=== PATIENT | male | born 1965 | race Caucasian/White ===

== ENCOUNTER 2019-09-11 19:27 | Inpatient (IN) | payer BC ==
[~2019-09-11] VITALS: Ht 185.4 cm; Wt 98.9 kg
[2019-09-11 20:57] LABS: Basophils # (auto) 0 uL; Basophils % (auto) 0.2 % (0.0-2.0); Eosinophils # (auto) 0.1 uL; Eosinophils % (auto) 0.7 % (0.0-7.0); Hematocrit 43.3 % (41.0-53.0); Hemoglobin 14.5 g/dL (13.5-17.5); Lymphocytes # (auto) 1.4 uL; Lymphocytes % (auto) 10.2 % (10.0-50.0); Mean Corpuscular Hemoglobin 31.7 pg (28.0-32.0); Mean Corpuscular Hgb Conc. 33.5 g/dL (32.0-36.0); Mean Corpuscular Volume 94.6 fL (80.0-100.0); Monocytes # (auto) 1.8 uL; Neutrophils # (auto) 10.4 uL; Neutrophils % (auto) 75.9 % (37.0-80.0); Nucleated Red Blood Cells % 0.1 %; Platelet Count (auto) 231 10^3/uL (140-450); Red Blood Cells 4.57 10^6/uL (4.5-5.90); Red Cell Distribution Width 12.7 % (11.8-14.3); White Blood Cell 13.7 10^3/uL (4.4-10.8)
[2019-09-11 21:02] LABS: Urine Bacteria FEW /hpf (None Seen); Urine Blood 2+ /uL (Negative); Urine Hyaline Cast FEW /lpf (0 - 2); Urine Mucus FEW (None Seen); Urine Specific Gravity 1.018 (1.001-1.035); Urine WBC 2298 /hpf (0 - 3); Urine WBC Clumps PRESENT /hpf (None Seen)
[2019-09-11 21:12] LABS: Albumin 3.3 g/dL (3.4-5.0); Calcium 8.5 mg/dL (8.5-10.1); Potassium 3.7 mmol/L (3.5-5.1)
[2019-09-11 21:14] LABS: BUN/Creatinine Ratio 13.5
[2019-09-11 21:17] LABS: Bilirubin, Total 0.6 mg/dL (0.2-1.0); Total Protein 6.9 g/dL (6.4-8.2)
[2019-09-12] MEDS ORDERED: ACETAMINOPHEN 325 MG TAB PO ONE (02:15)
[2019-09-12] MEDS ORDERED: SODIUM CHLORIDE 0.9% 1,000 ML IV ONE (04:15)
[2019-09-12] MEDS ORDERED: cefTRIAXone 1GM/50ML D5W 50 ML IV ONE (04:15)
[2019-09-12] MEDS ORDERED: IBUPROFEN 800 MG TAB PO ONE (05:00)
[2019-09-12] MEDS ORDERED: ONDANSETRON HCL 4 MG/2 ML VIAL IV ONE (05:45)
[2019-09-12] MEDS ORDERED: ONDANSETRON HCL 4 MG/2 ML VIAL IV PRN (07:00)
[2019-09-12] MEDS ORDERED: TEMAZEPAM 15 MG CAP PO PRN (07:00)
[2019-09-12] MEDS: SODIUM CHLORIDE 0.9% 1,000 ML IV SCH ×2 (07:43→20:20)
[2019-09-12] MEDS: FINASTERIDE 5 MG TAB PO SCH (10:17)
[2019-09-12 10:50] LABS: Basophils # (auto) 0.1 uL; Basophils % (auto) 0.5 % (0.0-2.0); Eosinophils # (auto) 0.1 uL; Eosinophils % (auto) 0.6 % (0.0-7.0); Hematocrit 38.6 % (41.0-53.0); Lymphocytes # (auto) 0.6 uL; Lymphocytes % (auto) 4.5 % (10.0-50.0); Mean Corpuscular Hemoglobin 31.6 pg (28.0-32.0); Mean Corpuscular Hgb Conc. 33.6 g/dL (32.0-36.0); Mean Corpuscular Volume 94.2 fL (80.0-100.0); Monocytes # (auto) 1.6 uL; Monocytes % (auto) 11.6 % (0.0-12.0); Neutrophils # (auto) 11.1 uL; Neutrophils % (auto) 82.8 % (37.0-80.0); Platelet Count (auto) 176 10^3/uL (140-450); Red Blood Cells 4.09 10^6/uL (4.5-5.90); Red Cell Distribution Width 12.8 % (11.8-14.3); White Blood Cell 13.4 10^3/uL (4.4-10.8)
--- NOTE | 2019-09-12 10:54 | NUR ---
MS admit from ER MARQUISE BATES admitted to tele/MS after SBAR received. Patient oriented to Sherri Willingham, primary RN, unit, room, bed, and unit policies regarding patient care and visiting hours. Patient weighed by bedscale and encouraged to call if they need something. All questions and concerns addressed, patient verbalized understanding.
[2019-09-12 11:16] LABS: BUN/Creatinine Ratio 16.5; Calcium 7.9 mg/dL (8.5-10.1); Potassium 3.5 mmol/L (3.5-5.1)
[2019-09-12] MEDS ORDERED: MULTTAB61 PO (11:26)
[2019-09-12] MEDS ORDERED: GLUC-163 PO (11:26)
[2019-09-12] MEDS ORDERED: CHOL20007 PO (11:26)
[2019-09-12] MEDS ORDERED: SIMV5TAB50 PO (11:26)
[2019-09-12 13:00] VITALS: BP 114/52
[2019-09-12] MEDS: ACETAMINOPHEN 325 MG TAB PO PRN ×2 (14:05→20:02)
--- NOTE | 2019-09-12 14:05 | NUR ---
Dr. Cary at bed side to see pt, doctor informed that pt has temp 103.1, orders received to do a bladder scan post void and if bladder UA residual more than 200 ml insert a leory catheter.
--- NOTE | 2019-09-12 15:15 | NUR ---
Bladder scan Bladder scan done post void, obtain 55 ml of urine residual in the bladder. will continue to monitor pt.
[2019-09-12] MEDS: MEROPENEM 1GM IVPB 100 ML IV SCH ×2 (15:26→22:00)
[2019-09-12] MEDS ORDERED: VANCOMYCIN 1GM/250ML 250 ML IV ONE (15:30)
[2019-09-12 16:39] VITALS: BP 114/61
--- NOTE | 2019-09-12 19:23 | NUR ---
Opening Shift Note Assumed care of patient, awake and alert x4. No S/S of distress/SOB or pain. Instructed on POC and to call for assist PRN, will continue to monitor for changes Q1hr and PRN.
--- NOTE | 2019-09-12 20:48 | NUR ---
Positive Blood Culture Laboratory called, patient has a positive blood culture, the result was Gram Negative Rods. Will call hospitalist regarding results.
--- NOTE | 2019-09-12 21:01 | NUR ---
Hospitalist called back. No new orders received. He stated the preliminary blood culture is going to gram negative rods, continue with current treatment and monitor patient.
[2019-09-12 22:00] VITALS: BP 107/64
[2019-09-12] MEDS: ATORVASTATIN 20 MG TAB PO SCH (22:00)
--- NOTE | 2019-09-12 22:00 | NUR ---
Temperature Reassessment Patient's oral temperature is now 102.1 degrees. New ice packs placed under the arms, cooling measures are in place, blankets were removed. Will continue to monitor patient and reassess.
[2019-09-13] VITALS (9 sets, daily range): BP systolic 110–129; BP diastolic 62–84
[2019-09-13] MEDS: ACETAMINOPHEN 325 MG TAB PO PRN ×4 (02:24→21:41)
--- NOTE | 2019-09-13 03:49 | NUR ---
Endorsed care to Tashi RN Patient is resting in bed, no complaints of pain. RN aware of elevated temperature. Cooling measures are in place. Oral temperature was 101.8 degrees. Call light is within reach.
--- NOTE | 2019-09-13 03:52 | NUR ---
assumed care of pt from Chelly BAUMAN. pt eyes closed breathing even and unlabored upon this nurse walking into pt room. no s/s distress noted. call light in reach. will continue to monitor.
[2019-09-13] MEDS ORDERED: cefTRIAXone 1GM/50ML D5W 50 ML IV SCH (05:00)
[2019-09-13 05:55] LABS: Basophils # (auto) 0 uL; Basophils % (auto) 0.1 % (0.0-2.0); Eosinophils # (auto) 0 uL; Eosinophils % (auto) 0.1 % (0.0-7.0); Hematocrit 38.4 % (41.0-53.0); Hemoglobin 12.8 g/dL (13.5-17.5); Lymphocytes # (auto) 1.1 uL; Lymphocytes % (auto) 6.5 % (10.0-50.0); Mean Corpuscular Hemoglobin 31.8 pg (28.0-32.0); Mean Corpuscular Hgb Conc. 33.5 g/dL (32.0-36.0); Mean Corpuscular Volume 95.1 fL (80.0-100.0); Monocytes # (auto) 2.2 uL; Monocytes % (auto) 12.8 % (0.0-12.0); Neutrophils # (auto) 13.9 uL; Neutrophils % (auto) 80.5 % (37.0-80.0); Platelet Count (auto) 183 10^3/uL (140-450); Red Blood Cells 4.03 10^6/uL (4.5-5.90); Red Cell Distribution Width 12.8 % (11.8-14.3); White Blood Cell 17.3 10^3/uL (4.4-10.8)
[2019-09-13] MEDS: MEROPENEM 1GM IVPB 100 ML IV SCH ×3 (06:13→21:33)
[2019-09-13 06:39] LABS: Potassium 3.8 mmol/L (3.5-5.1)
[2019-09-13 06:49] LABS: BUN/Creatinine Ratio 14.4
--- NOTE | 2019-09-13 07:10 | NUR ---
Opening Shift Note Assumed care of patient, awake and alert, breakfast bedside. Instructed on POC and to call for assist PRN, call light within reach and bed in lowest and locked position. Will continue to monitor for changes Q1hr and PRN.
[2019-09-13] MEDS: SODIUM CHLORIDE 0.9% 1,000 ML IV SCH ×2 (08:57→23:00)
[2019-09-13] MEDS: FINASTERIDE 5 MG TAB PO SCH (08:57)
--- NOTE | 2019-09-13 10:10 | NUR ---
Paged Dr. Cary regarding patient temperature of 102.9 and not reducing with Tylenol.
--- NOTE | 2019-09-13 10:43 | NUR ---
Talked to Dr. Cary, informed her of patients fevers. Carried out orders as given.
--- NOTE | 2019-09-13 11:20 | NUR ---
Bladder scan Completed bladder after patient urinated, 22 ml remained
--- NOTE | 2019-09-13 13:45 | NUR ---
Dr. Cary bedside with patient and discussing plan of care. Carried out orders as given.
--- NOTE | 2019-09-13 13:58 | NUR ---
Communication If patient has not had a bowel movement by 10-28 in AM, please call Hospitalist per Dr. Cary.
[2019-09-13] MEDS ORDERED: DOCUSATE SOD 100 MG CAP PO ONE (14:00)
[2019-09-13] MEDS ORDERED: cefTRIAXone 1GM/50ML D5W 50 ML IV ONE (17:30)
[2019-09-13 17:44] LABS: Basophils # (auto) 0.1 uL; Basophils % (auto) 0.3 % (0.0-2.0); Eosinophils # (auto) 0.1 uL; Eosinophils % (auto) 0.5 % (0.0-7.0); Hemoglobin 12.8 g/dL (13.5-17.5); Lymphocytes % (auto) 6.4 % (10.0-50.0); Mean Corpuscular Hemoglobin 31.7 pg (28.0-32.0); Mean Corpuscular Hgb Conc. 33.6 g/dL (32.0-36.0); Mean Corpuscular Volume 94.2 fL (80.0-100.0); Monocytes # (auto) 1.7 uL; Monocytes % (auto) 10.6 % (0.0-12.0); Neutrophils # (auto) 12.9 uL; Neutrophils % (auto) 82.2 % (37.0-80.0); Platelet Count (auto) 188 10^3/uL (140-450); Red Blood Cells 4.03 10^6/uL (4.5-5.90); Red Cell Distribution Width 12.8 % (11.8-14.3); White Blood Cell 15.7 10^3/uL (4.4-10.8)
[2019-09-13] MEDS ORDERED: LEVOFLOXACIN 500MG 100 ML IV ONE (18:30)
--- NOTE | 2019-09-13 19:20 | NUR ---
Opening Shift Note Assumed care of patient, awake and alert x4. No S/S of distress/SOB or pain. Family is at bedside. Instructed on POC and to call for assist PRN, will continue to monitor for changes Q1hr and PRN. Call light is within reach, side rails up x2, bed is in lowest position.
[2019-09-13] MEDS: ATORVASTATIN 20 MG TAB PO SCH (21:38)
[2019-09-13] MEDS: DOCUSATE SOD 100 MG CAP PO SCH (21:38)
[2019-09-14] MEDS: ACETAMINOPHEN 325 MG TAB PO PRN ×2 (03:49→20:34)
[2019-09-14 05:24] VITALS: BP 120/80
[2019-09-14 05:39] LABS: Basophils # (auto) 0 uL; Basophils % (auto) 0.1 % (0.0-2.0); Eosinophils # (auto) 0.2 uL; Eosinophils % (auto) 1.4 % (0.0-7.0); Hematocrit 36.5 % (41.0-53.0); Hemoglobin 12.4 g/dL (13.5-17.5); Lymphocytes % (auto) 8.2 % (10.0-50.0); Mean Corpuscular Hemoglobin 31.7 pg (28.0-32.0); Mean Corpuscular Volume 93.3 fL (80.0-100.0); Monocytes # (auto) 1.3 uL; Monocytes % (auto) 10.1 % (0.0-12.0); Neutrophils % (auto) 80.2 % (37.0-80.0); Platelet Count (auto) 182 10^3/uL (140-450); Red Blood Cells 3.91 10^6/uL (4.5-5.90); Red Cell Distribution Width 12.9 % (11.8-14.3); White Blood Cell 12.5 10^3/uL (4.4-10.8)
[2019-09-14 06:05] LABS: BUN/Creatinine Ratio 15.5; Calcium 8.1 mg/dL (8.5-10.1); Potassium 4.3 mmol/L (3.5-5.1)
[2019-09-14] MEDS: MEROPENEM 1GM IVPB 100 ML IV SCH ×3 (06:10→21:36)
--- NOTE | 2019-09-14 06:52 | NUR ---
Closing Note Patient is resting in bed. No complaints of pain, SOB, or distress. Call light is within reach. Will endorse to dayshift RN.
--- NOTE | 2019-09-14 07:52 | NUR ---
received call from lab pt blood culture and urine culture is positive for E coli,ESBL. Sherri, charge nurse made aware so due to patient need to isolate.
[2019-09-14 08:53] VITALS: BP 123/69
[2019-09-14] MEDS ORDERED: cefTRIAXone 1GM/50ML D5W 50 ML IV SCH (09:00)
[2019-09-14] MEDS: FINASTERIDE 5 MG TAB PO SCH (09:46)
[2019-09-14] MEDS: DOCUSATE SOD 100 MG CAP PO SCH ×2 (09:47→21:36)
--- NOTE | 2019-09-14 12:19 | NUR ---
SEEN AND EXAMINED BY DR HENRY, DISCUSSED WITH PATIENT PLAN FOR MIDLINE PLACEMENT TODAY FOR 2 WEEKS HOME IV ANTIBIOTIC.
[2019-09-14] MEDS: SODIUM CHLORIDE 0.9% 1,000 ML IV SCH (12:20)
[2019-09-14 13:00] VITALS: BP 127/74
--- NOTE | 2019-09-14 16:53 | NUR ---
Midline Placement: Patient educated on need for midline placement. All risks and benefits explained and all questions and concerns addresses prior to procedure. 18g/10cm midline inserted via left basilic vein using Ultrasound. Sterile technique utilized. Blood return obtained from lumen and flushed easily with NS using proper technique. Midline secured with saline lock; biodisc and occlusive dressing applied. Primary RN notified. Midline lot #[id number]
[2019-09-14 17:00] VITALS: BP 133/74
--- NOTE | 2019-09-14 19:07 | NUR ---
Respiratory note: PT SEEN AT THIS TIME AND ASKED IF HE WHAT TIME HE WOULD LIKE TO USE HIS CPAP TONIGHT. THE PT STATED THAT HE DID NOT WANT TO WEAR IT ANYMORE DUE TO IT MAKING HIM SICK AND GIVING HIM A BAD HEADACHE THE NIGHT BEFORE. PT SAID IF HE ABSOLUTELY COULDN'T FALL ASLEEP THAT HE MIGHT POSSIBLY USE IT. CPAP LEFT IN THE ROOM AT THIS TIME. PT AWARE TO CALL FOR RT IF HE WISHES TO GO ON AT ANYTIME.
[2019-09-14] MEDS: ATORVASTATIN 20 MG TAB PO SCH (21:36)
[2019-09-14 21:50] VITALS: BP 136/57
[2019-09-15] MEDS: SODIUM CHLORIDE 0.9% 1,000 ML IV SCH (01:40)
[2019-09-15 05:09] VITALS: BP 132/77
[2019-09-15] MEDS: MEROPENEM 1GM IVPB 100 ML IV SCH (05:35)
[2019-09-15] MEDS: ACETAMINOPHEN 325 MG TAB PO PRN (06:01)
--- NOTE | 2019-09-15 06:45 | NUR ---
Respiratory note: PATIENT SEEN FOR NOC CPAP ORDER. PATIENT HAS BEEN OFF CPAP AND STATED HE DID NOT WANT TO USE IT IT MAKES HIM SICK. I ASKED IF HE WOULD LIKE TO TRY IT AGAIN TONIGHT AND HE STATED "NO". I ASKED IF HE WOULD PREFER TO NOT USE IT AT ALL AND HE SAID "YES, I DON'T WANT TO USE IT OR TRY AGAIN". CPAP MACHINE REMOVED FROM PATIENTS ROOM AND ORDER D/C'D PATIENT IS NOW REFUSING TO UTILIZE. PATIENT EDUCATED ON THE IMPORTANCE FOR CPAP, HE UNDERSTANDS ALL IMPLICATIONS OF NOT FOLLOWING CURRENT CPAP ORDERS.
--- NOTE | 2019-09-15 07:40 | NUR ---
ORDERED STAT BLOOD CULTURE PER DR HENRY.
[2019-09-15] MEDS: DOCUSATE SOD 100 MG CAP PO SCH (08:53)
[2019-09-15] MEDS: FINASTERIDE 5 MG TAB PO SCH (08:53)
[2019-09-15 09:07] VITALS: BP 115/76
[2019-09-15] MEDS ORDERED: ERTAPENEM SOD INJ 1 GM in SODIUM CHL 0.9% 50 ML IV ONE ×2 (10:45→14:00)
[2019-09-15 12:47] VITALS: BP 125/75
--- NOTE | 2019-09-15 15:39 | NUR ---
PATIENT PHYSICAL ADDRESS GIVEN TO [employer] FOR HOME HEALTH VISIT. DISCHARGE PAPERS GIVEN TO PATIENT WITH PENDING HOME HEALTH, VERBALIZED UNDERSTANDING. FIRST DOSE OF INVANZ COMPLETED.
[2019-09-15 17:00] VITALS: BP 139/79
--- NOTE | 2019-09-15 17:10 | NUR ---
Discharge planning per consult, patient has orders to dc with home IV antibiotics. Referral sent to [facility] placed a follow up call spoke with Rodrigo, and was advised to send the order to [facility]. Referral was faxed to [facility], placed a follow up call, spoke with Jessica and was advised that upon running the insurance, his Pallavi was the policy zaldivar and patient does qualify however has a $20/day co-pay, but otherwise was okay to start services tomorrow 09.16.19. [facility] will also provide the [facility]. I transferred her to the nurse Cheyenne to inquire of the last dosing time. When I placed a call to nurse Quinn to advised of dc plan, she advised patient was on the phone with [facility]. A physical address was obtained and provided to L[place] at [address] [place] [address] for delivery of IV medications. Addendum: 09/15/19 at 1720 by ANNABELLE RAMIREZ Amended: Links added.
--- NOTE | 2019-09-15 17:36 | NUR ---
CALL RECEIVED FROM CHARLES RAZO, UPDATE ON LAST DOSE GIVEN PROVIDED TO REN. REN SPOKE TO PATIENT AT LENGTH OVER THE PHONE. PATIENT LEFT UNIT WITH ALL BELONGING ACCOUNTED FOR, REFUSE WHEELCHAIR ASSISTANCE AND PREFER TO AMBULATE . PATIENT DISCHARGE WITH MIDLINE ON LEFT UPPER ARM INTACT AND PATENT, CAP COVERED AND SITE SECURED WITH STOCKINGNET
[2019-09-16] MEDS ORDERED: ERTAPENEM SOD INJ 1 GM in SODIUM CHL 0.9% 50 ML IV SCH (10:00)
== END 2019-09-15 17:30 | disposition home health service (06) | DRG 872 ==
LOC: ER 19:32 → OVERFLOW 19:33 → WEST WING 09-12 11:40
PROVIDERS: ADMIT Nurse Practitioner; ATTEND Family Medicine
PROC: 5A09357 Assistance with Respiratory Ventilation, Less than 24 Consecutive Hours, Continuous Positive Airway Pressure (ICD-10-PCS; principal; 2019-09-13)
DX: A41.51 Sepsis due to Escherichia coli [E. coli] (principal); N39.0 Urinary tract infection, site not specified; Z16.12 Extended spectrum beta lactamase (ESBL) resistance; E78.00 Pure hypercholesterolemia, unspecified; E78.5 Hyperlipidemia, unspecified; E86.0 Dehydration; N40.0 Benign prostatic hyperplasia without lower urinary tract symptoms; Z80.6 Family history of leukemia; Z83.3 Family history of diabetes mellitus; Z90.79 Acquired absence of other genital organ(s)
CPT/HCPCS: 36415; 51702; 74176; 76775; 80048; 80053; 81001; 83605; 85025; 87040; 87077; 87086; 87088; 87186; 94660; 94762; 96365; G0378; J0696; J1335; J1956; J2185; J2405